=== PATIENT | female | born 1990 | race Caucasian/White ===

== ENCOUNTER 2021-09-28 00:17 | Day surgery (SDC) | payer SELFPAY ==
[2021-09-28 00:46] VITALS: BMI 23.3
[2021-09-28] MEDS ORDERED: hydrALAZINE 20 MG/ML VIAL SLOW IVP PRN (01:23)
[2021-09-28] MEDS ORDERED: Promethazine HCl 25 MG/ML VIAL IM PRN (01:52)
[2021-09-28] MEDS ORDERED: Acetaminophen 500 MG TAB PO SCH (02:00)
== END 2021-09-28 06:55 | disposition home or self-care (01) ==
LOC: CSHLD/OP 00:17
PROVIDERS: ATTEND Obstetrics & Gynecology
DX: O47.1 False labor at or after 37 completed weeks of gestation (principal); O34.211 Maternal care for low transverse scar from previous cesarean delivery; Z3A.38 38 weeks gestation of pregnancy
CPT/HCPCS: J2550

== ENCOUNTER 2021-10-08 14:34 | Day surgery (SDC) | payer SELFPAY ==
[2021-10-08 15:02] VITALS: BMI 24.0
[2021-10-08] MEDS ORDERED: hydrALAZINE 20 MG/ML VIAL SLOW IVP PRN (16:09)
[2021-10-08 16:54] LABS: Hemoglobin 10.9 g/dL (12.0-15.5); Mean Corpuscular HGB CONC 32.2 g/dL (32.0-36.0); Mean Corpuscular Hemoglobin 25.8 pg (27.0-33.0); Mean Corpuscular Volume 80.1 fl (81.6-98.3); Mean Platelet Volume 11.8 fl (7.4-10.4); Platelet Count 208 10x3/uL (150-450); RBC Distribution Width 16.4 % (11.5-14.5); Red Blood Cell (RBC) Count 4.22 10x6/uL (3.90-5.03); White Blood Cell (WBC) Count 11.8 10x3/uL (3.5-10.5)
[2021-10-08 17:00] LABS: ALT (SGPT) 10 U/L (8-55); AST (SGOT) 13 U/L (5-34); Alkaline Phosphatase 169 U/L (40-110); Anion Gap 13 mmol/L (10-20); BUN (Urea Nitrogen) 6 mg/dL (7.0-18.7); Bilirubin, Total 0.2 mg/dL (0.2-1.2); Calc. Creatinine Clearance 131 mL/min (70-130); Calcium 9.8 mg/dL (7.8-10.44); Carbon Dioxide 22 mmol/L (22-29); Chloride 105 mmol/L (98-107); Estimated GFR 121; Glucose 84 mg/dL (70-105); Potassium 3.6 mmol/L (3.5-5.1); Sodium 136 mmol/L (136-145)
[2021-10-08 17:18] LABS: HIV (1/2) Antibody/Antigen Non-Reactive (NonReactive); HIV 1/2 INDEX 0.07 S/CO (<1.00); Hep B Surf Ag Non-Reactive S/CO (NonReactive)
[2021-10-08 17:19] LABS: Syphilis Antibody Nonreactive (Nonreactive); Syphilis Antibody Index 0.03 S/CO (<1.00 Non-Reactive)
[2021-10-08 17:41] LABS: HBSAg Index 0.16 S/CO (0-0.99)
[2021-10-08] MEDS ORDERED: Promethazine HCl 25 MG in Sodium Chloride 0.9% 50 ML IVPB PRN (17:45)
[2021-10-08] MEDS ORDERED: Lactated Ringer's 1,000 ML IV SCH (17:45)
[2021-10-08] MEDS ORDERED: Acetaminophen 500 MG TAB PO SCH (18:00)
[2021-10-08 19:42] LABS: Bilirubin Neg (Negative); Blood, Urine Negative (Negative); Clarity Clear (Clear); Glucose, Urine (Dipstick) Normal (Negative); Ketone, Urine Negative (Negative); Leukocyte Negative (Negative); Nitrite Negative (Negative); Protein, Urine (Dipstick) Negative (Neg-Trace); Specific Gravity, Urine 1.005 (1.002-1.036); Urobilinogen Normal mg/dL (Less than 2)
[2021-10-08 20:00] LABS: Bacteria/HPF 2+ HPF (None Seen); Mucous/LPF 1+ LPF (<2+); RBC/HPF 0-3 HPF (0-3); Squamous Epithelial 0-3 HPF (0-3); WBC/HPF None Seen HPF (0-3)
[2021-10-08 20:55] LABS: Amphetamine Detected (NotDetected); Barbiturates Screen Not Detected (NotDetected); Benzodiazepine Screen Not Detected (NotDetected); Cocaine Metabolite Screen Not Detected (NotDetected); Methadone Not Detected (NotDetected); Methamphetamine Detected (NotDetected); Opiate Screen Not Detected (NotDetected); Oxycodone Screen Not Detected (NotDetected); Phencyclidine (PCP) Not Detected (NotDetected); THC/Cannabinoid Screen Not Detected (NotDetected); Tricyclic Screen Not Detected (NotDetected)
[2021-10-09 10:53] LABS: Chlam.trachomatis by PCR,Urine Not Detected (NotDetected)
== END 2021-10-08 20:23 | disposition home or self-care (01) ==
LOC: CSHLD/OP 14:34
PROVIDERS: ATTEND Obstetrics & Gynecology
DX: O47.1 False labor at or after 37 completed weeks of gestation (principal); O26.853 Spotting complicating pregnancy, third trimester; O23.593 Infection of other part of genital tract in pregnancy, third trimester; O09.33 Supervision of pregnancy with insufficient antenatal care, third trimester; O34.211 Maternal care for low transverse scar from previous cesarean delivery; Z3A.38 38 weeks gestation of pregnancy
CPT/HCPCS: 76815; 76819; 80053; 80306; 81001; 85027; 86762; 86780; 86850; 86900; 86901; 87081; 87340; 87389; 87480; 87491; 87510; 87591; 87660

== ENCOUNTER 2021-10-09 20:49 | Inpatient (IN) | payer MEDICAID, SELFPAY ==
[2021-10-09] MEDS ORDERED: Lidocaine 1% (PF) 30 ML VIAL SC PRN (21:02)
[2021-10-09] MEDS ORDERED: hydrALAZINE 20 MG/ML VIAL SLOW IVP PRN ×2 (21:02→22:11)
[2021-10-09] MEDS ORDERED: Misoprostol 200 MCG TAB PR PRN (21:02)
[2021-10-09] MEDS ORDERED: Ibuprofen 800 MG TAB PO PRN (21:02)
[2021-10-09] MEDS ORDERED: Acetaminophen 500 MG TAB PO PRN (21:02)
[2021-10-09] MEDS ORDERED: Promethazine HCl 25 MG/ML VIAL IM PRN (21:02)
[2021-10-09] MEDS ORDERED: Carboprost 250 MCG/ML AMP IM PRN (21:02)
[2021-10-09] MEDS ORDERED: Ondansetron PF 4 MG/2 ML Vial IVP PRN (21:02)
[2021-10-09] MEDS ORDERED: Methylergonovine 0.2 MG/ML VIAL IM PRN (21:02)
[2021-10-09] MEDS ORDERED: Diphenoxylate HCl/Atropine Tablet PO PRN (21:02)
[2021-10-09] MEDS ORDERED: NS w/ Oxytocin 30 units 500 ML ONE (21:15)
[2021-10-09] MEDS ORDERED: Lidocaine 1% (PF) 30 ML VIAL ONE (21:15)
[2021-10-09 21:19] VITALS: BMI 24.9
[2021-10-09] MEDS ORDERED: Carboprost 250 MCG/ML AMP ONE (21:24)
[2021-10-09] MEDS ORDERED: Misoprostol 200 MCG TAB ONE (21:25)
[2021-10-09 21:26] LABS: Hemoglobin 12.2 g/dL (12.0-15.5); Mean Corpuscular HGB CONC 32.7 g/dL (32.0-36.0); Mean Corpuscular Hemoglobin 25.9 pg (27.0-33.0); Mean Corpuscular Volume 79.2 fl (81.6-98.3); Platelet Count 205 10x3/uL (150-450); RBC Distribution Width 16.4 % (11.5-14.5); Red Blood Cell (RBC) Count 4.71 10x6/uL (3.90-5.03); White Blood Cell (WBC) Count 16.5 10x3/uL (3.5-10.5)
[2021-10-09 21:53] LABS: Hep B Surf Ag Non-Reactive S/CO (NonReactive)
[2021-10-09 21:54] LABS: HBSAg Index 0.12 S/CO (0-0.99); Syphilis Antibody Nonreactive (Nonreactive); Syphilis Antibody Index 0.03 S/CO (<1.00 Non-Reactive)
[2021-10-09] MEDS ORDERED: Tranexamic Acid 1,000 MG/10 ML VIAL ONE (21:56)
[2021-10-09] MEDS: NS w/ Oxytocin 30 units 500 ML IV SCH ×2 (22:00→23:04)
[2021-10-09] MEDS ORDERED: Butorphanol Tartrate 1 MG/ML VIAL SLOW IVP PRN (22:04)
[2021-10-09] MEDS ORDERED: Butorphanol Tartrate 1 MG/ML VIAL ONE (22:06)
[2021-10-09] MEDS ORDERED: Milk Of Magnesia 30 ML UDCUP PO PRN (22:11)
[2021-10-09] MEDS ORDERED: Boostrix 0.5 ML (Tdap) VIAL IM ONE (22:11)
[2021-10-09] MEDS ORDERED: Bisacodyl 10 MG SUPP PR PRN (22:11)
[2021-10-09] MEDS ORDERED: Ibuprofen 800 MG TAB PO SCH (23:15)
[2021-10-10 02:32] LABS: SARS-CoV-2 NAA Rapid Test Not Detected (NotDetected)
[2021-10-10 05:04] LABS: #Basophils 0.1 10x3/uL (0.0-0.2); #Monocytes 1.1 10x3/uL (0.0-1.1); #Neutrophils 14.8 10x3/uL (1.5-8.4); %Basophils 0.3 % (0.0-2.0); %Eosinophils 0.2 % (0.0-6.0); %Lymphocytes 12.6 % (18.0-47.0); %Neutrophils 79.8 % (40.0-75.0); Hemoglobin 11.2 g/dL (12.0-15.5); Mean Corpuscular HGB CONC 32.3 g/dL (32.0-36.0); Mean Corpuscular Hemoglobin 25.7 pg (27.0-33.0); Mean Corpuscular Volume 79.8 fl (81.6-98.3); Mean Platelet Volume 11.6 fl (7.4-10.4); Platelet Count 187 10x3/uL (150-450); RBC Distribution Width 15.9 % (11.5-14.5); Red Blood Cell (RBC) Count 4.35 10x6/uL (3.90-5.03); White Blood Cell (WBC) Count 18.5 10x3/uL (3.5-10.5)
[2021-10-10] MEDS: Ibuprofen 800 MG TAB PO SCH ×3 (06:35→21:19)
[2021-10-10] MEDS: Ferrous Sulfate 325 MG TAB PO SCH ×2 (09:01→16:53)
[2021-10-10] MEDS: Docusate 100 MG CAP PO SCH ×2 (09:02→21:19)
[2021-10-11] MEDS: Ibuprofen 800 MG TAB PO SCH (05:25)
[2021-10-11 08:05] VITALS: BP 122/82; TEMP 98.2
[2021-10-11] MEDS: Ferrous Sulfate 325 MG TAB PO SCH (08:06)
[2021-10-11] MEDS: Docusate 100 MG CAP PO SCH (09:06)
== END 2021-10-11 12:00 | disposition home or self-care (01) | DRG 806 ==
LOC: CSHLD/OP 20:49 → CSHLD 21:08 → CSHPP 10-10 00:10
PROVIDERS: ADMIT Obstetrics & Gynecology; ATTEND Obstetrics & Gynecology
PROC: 10E0XZZ Delivery of Products of Conception, External Approach (ICD-10-PCS; principal; 2021-10-09)
DX: O34.211 Maternal care for low transverse scar from previous cesarean delivery (principal); O23.593 Infection of other part of genital tract in pregnancy, third trimester; Z37.0 Single live birth; O99.324 Drug use complicating childbirth; Z20.822 Contact with and (suspected) exposure to COVID-19; Z3A.38 38 weeks gestation of pregnancy; N76.0 Acute vaginitis; F15.90 Other stimulant use, unspecified, uncomplicated
CPT/HCPCS: 85025; 85027; 86780; 86850; 86900; 86901; 87340; 88307; 99285; J0595; J2590; U0002